=== PATIENT | female | born 1970 ===

== ENCOUNTER 2020-09-02 17:42 | Emergency (ER) | payer SELFPAY ==
[2020-09-02 17:56] VITALS: BP 153/95
[2020-09-02] MEDS ORDERED: ONDANSETRON 4 MG/2 ML INJ IV ONE (19:40)
[2020-09-02] MEDS ORDERED: MORPHINE 4 MG/1 ML INJ IV ONE (19:40)
[2020-09-02] MEDS ORDERED: FAMOTIDINE 20 MG/2 ML INJ IV ONE (19:40)
[2020-09-02] MEDS ORDERED: LIDOCAINE VISCOUS 2% 15 ML ORAL LIQD PO ONE (19:42)
[2020-09-02] MEDS ORDERED: ALUM-MAG HYDROXIDE-SIMETHICONE 200-200-20MG/5ML ORAL LIQD 30 ML PO ONE (19:42)
[2020-09-02 20:08] LABS: Basophils % (Auto) 0.3 % (0.0-1.8); Eosinophils % (Auto) 0.2 % (0.0-4.3); Hematocrit 37.8 % (30.3-42.9); Hemoglobin 12.6 gm/dl (10.1-14.3); Lymphocytes # (Auto) 1.3 K/mm3 (1.2-5.4); Lymphocytes % (Auto) 13.2 % (13.4-35.0); Mean Corpuscular HGB Conc 33 % (30-34); Mean Corpuscular Volume 92 fl (79-97); Monocytes # (Auto) 0.5 K/mm3 (0.0-0.8); Platelet Count 306 K/mm3 (140-440); Red Blood Count 4.12 M/mm3 (3.65-5.03); Red Cell Distribution Width 13.3 % (13.2-15.2)
[2020-09-02] MEDS ORDERED: SODIUM CHLORIDE 0.9% 1000 ML 1,000 ML IV ONE (20:10)
--- NOTE | 2020-09-02 20:14 | Emergency Department Report ---
ED General Adult HPI - General Chief complaint: Arrhythmia/Palpitations Stated complaint: VOMITING PUI?: No Source: patient Mode of arrival: Ambulatory Limitations: Language Barrier - History of Present Illness Initial comments: Patient is a 49-year-old female with a history of hypertension, GERD and hyperlipidemia presents to the ED with complaint of acute onset persistent epigastric pain, nausea and elevated heart rate for the last 2 hours after having an extensive argument with her prior to arrival in the ED. Patient states that her heart rate felt like palpitations and that the pain in the epigastric area got worse. Patient states that she currently takes hydrochlorothiazide 12.5 mg daily for hypertension and just recently got diagnosed with hyperlipidemia but unable to remember the name of the medication she takes for hyperlipidemia. Patient also states that she occasionally takes Pepcid for GERD. Patient states that epigastric pain and nausea have been persistent since the onset of the symptoms. Patient denies dizziness, syncope, shortness of breath, chest pain, headache, vomiting, fever, chills, cough, neck pain, hematemesis, diarrhea, numbness and tingling or weakness of upper extremities bilaterally, back pain or diaphoresis. MD Complaint: Epigastric pain; nausea; palpitations; elevated blood pressure -: Sudden, hour(s) (2) Location: chest, abdomen Radiation: non-radiation Severity scale (0 -10): 6 Quality: aching, constant Consistency: constant Improves with: none Associated Symptoms: denies other symptoms, loss of appetite, nausea/vomiting. denies: confusion, chest pain, cough, diaphoresis, fever/chills, headaches, malaise, rash, seizure, shortness of breath, syncope, weakness Treatments Prior to Arrival: none - Related Data Previous Rx's Medication Instructions Recorded Last Taken Type Dicyclomine [Bentyl] 20 mg PO Q6H PRN #30 tablet 09/03/20 Unknown Rx Esomeprazole Magnesium [NexIUM] 40 mg PO QDAY #30 capsule. 09/03/20 Unknown Rx Ondansetron [Zofran Odt] 4 mg PO Q6HR PRN #120 tab.manuel 09/03/20 Unknown Rx hydrOXYzine PAMOATE [Vistaril] 25 mg PO Q6HR PRN #30 capsule 09/03/20 Unknown Rx Allergies Allergy/AdvReac Type Severity Reaction Status Date / Time No Known Allergies Allergy Unverified 09/02/20 17:53 ED Review of Systems ROS: Stated complaint: VOMITING Other details as noted in HPI Constitutional: malaise, other (elevated blood pressure). denies: chills, fever Eyes: denies: eye pain, eye discharge, vision change ENT: denies: ear pain, throat pain Respiratory: denies: cough, shortness of breath, wheezing Cardiovascular: palpitations. denies: chest pain Endocrine: no symptoms reported Gastrointestinal: abdominal pain (epigastric pain), nausea. denies: vomiting, diarrhea Genitourinary: denies: urgency, dysuria, frequency, hematuria, discharge, abnormal menses Musculoskeletal: denies: back pain, joint swelling, arthralgia Skin: denies: rash, lesions Neurological: denies: headache, weakness, paresthesias Psychiatric: anxiety. denies: depression Hematological/Lymphatic: denies: easy bleeding, easy bruising ED Past Medical Hx - Past Medical History Hx Hypertension: Yes Hx GERD: Yes Additional medical history: Hyperlipidemia - Surgical History Past Surgical History?: No - Social History Smoking Status: Unknown if ever smoked - Medications Home Medications: Home Medications Medication Instructions Recorded Confirmed Last Taken Type Dicyclomine [Bentyl] 20 mg PO Q6H PRN #30 tablet 09/03/20 Unknown Rx Esomeprazole Magnesium [NexIUM] 40 mg PO QDAY #30 capsule. 09/03/20 Unknown Rx Ondansetron [Zofran Odt] 4 mg PO Q6HR PRN #120 tab.rapdis 09/03/20 Unknown Rx hydrOXYzine PAMOATE [Vistaril] 25 mg PO Q6HR PRN #30 capsule 09/03/20 Unknown Rx ED Physical Exam - General Limitations: Language Barrier General appearance: alert, in no apparent distress - Head Head exam: Present: atraumatic, normocephalic, normal inspection - Eye Eye exam: Present: normal appearance, PERRL, EOMI Pupils: Present: normal accommodation - ENT ENT exam: Present: normal exam, normal orophraynx, mucous membranes moist, TM's normal bilaterally, normal external ear exam - Neck Neck exam: Present: normal inspection, full ROM - Respiratory Respiratory exam: Present: normal lung sounds bilaterally. Absent: respiratory distress, wheezes, rales, rhonchi, stridor, chest wall tenderness, accessory muscle use, decreased breath sounds, prolonged expiratory - Cardiovascular Cardiovascular Exam: Present: normal rhythm, tachycardia, normal heart sounds. Absent: systolic murmur, diastolic murmur, rubs, gallop - GI/Abdominal GI/Abdominal exam: Present: soft, tenderness (palpable epigastric tenderness), normal bowel sounds. Absent: distended, guarding, rebound, hyperactive bowel sounds, hypoactive bowel sounds, organomegaly - Extremities Exam Extremities exam: Present: normal inspection, full ROM, normal capillary refill - Back Exam Back exam: Present: normal inspection, full ROM. Absent: tenderness, CVA tenderness (R), CVA tenderness (L), muscle spasm, paraspinal tenderness, vertebral tenderness - Neurological Exam Neurological exam: Present: alert, oriented X3, CN II-XII intact, normal gait, reflexes normal - Psychiatric Psychiatric exam: Present: normal affect, normal mood, anxious - Skin Skin exam: Present: warm, dry, intact, normal color. Absent: rash ED Course Vital Signs 09/02/20 09/03/20 17:46 04:51 Temperature 97.6 F Pulse Rate 109 H 86 Respiratory 18 16 Rate Blood Pressure 153/95 O2 Sat by Pulse 99 98 Oximetry ED Medical Decision Making - Lab Data Result diagrams: 09/02/20 19:46 09/02/20 19:46 - EKG Data EKG shows normal: sinus rhythm Rate: normal - EKG Data Interpretation: normal EKG 09/03/20 01:00 The repeat 3-hour EKG shows normal sinus rhythm with a ventricular rate of [address] or T wave abnormalities. - Radiology Data Radiology results: report reviewed, image reviewed [address] [address] XRay Report Signed Patient: LAWRENCE MADISON MR#: [id number] : 1970 Acct:[id number] Age/Sex: 49 / F ADM Date: 09/02/20 Loc: ED Attending Dr: Ordering Physician: LOBO ALVARENGA Date of Service: 09/02/20 Procedure(s): XR chest routine 2V Accession Number(s): [id number] cc: LOBO ALVARENGA Fluoro Time In Minutes: CHEST 2 VIEWS INDICATION: chest pain. COMPARISON: None FINDINGS: SUPPORT DEVICES: None. HEART: Within normal limits. LUNGS/PLEURA: No acute air space or interstitial disease. No pneumothorax. ADDITIONAL FINDINGS: None. IMPRESSION: 1. No acute findings. Signer Name: Yevgeniy Arce MD Signed: 09/02/2020 8:31 PM Workstation Name: [id number] Transcribed By: ERASTO Dictated By: Yevgeniy Arce MD Electronically Authenticated By: Yevgeniy Arce MD Signed Date/Time: 09/02/202030 DD/ 30 TD/TT: - Medical Decision Making This is a 49-year-old female with a history of hypertension, GERD and hyperlipidemia presents to the ED with complaint of acute onset persistent epigastric pain, nausea and elevated heart rate for the last 2 hours after h aving an extensive argument with her prior to arrival in the ED. Patient states that her heart rate felt like palpitations and that the pain in the epigastric area got worse. Patient states that she currently takes hydrochlorothiazide 12.5 mg daily for hypertension and just recently got di agnosed with hyperlipidemia but unable to remember the name of the medication she takes for hyperlipidemia. Patient also states that she occasionally takes Pepcid for GERD. Patient states that epigastric pain and nausea have been persistent since the onset of the symptoms. In the ED, patient is alert and oriented x3 and is not in any distress but anxious, afebrile and tachycardic in triage. Initial EKG shows sinus tachycardia with a ventricular rate of [address] or T wave abnormalities. Chest x-ray shows no acute cardiopulmonary abnormalities or pneumonitis. Lab test results were reviewed and are all nonactionable including initial and 3-hour troponin levels. Repeat 3-hour EKG shows sinus rhythm with a ventricular rate of [address] or T wave abnormalities. On reevaluation, patient felt better, epigastric pain resolved as well as nausea. Patient is hemodynamically stable. Patient was discharged home on medications and advised to follow-up with her primary care physician in 5 to 7 days for reevaluation. Patient advised return to the ED immediately if symptoms get worse. - Differential Diagnosis GERD; Anxiety; Uncontrolled HTN; ACS Critical care attestation.: If time is entered above; I have spent that time in minutes in the direct care of this critically ill patient, excluding procedure time. ED Disposition Clinical Impression: Anxiety as acute reaction to exceptional stress, Uncontrolled hypertension, stage 1, Abdominal pain, acute, epigastric GERD (gastroesophageal reflux disease) Qualifiers: Esophagitis presence: esophagitis presence not specified Qualified Code(s): K21.9 - Gastro-esophageal reflux disease without esophagitis Disposition: TO HOME OR SELFCARE Is pt being admited?: No Does the pt Need Aspirin: No Condition: Stable Instructions: Generalized Anxiety Disorder, Adult, Hypertension, Adult, [id number], Gastroesophageal Reflux Disease, Adult, [id number], Hypertension (ED) Additional Instructions: Todos los resultados de las pruebas de laboratorio fueron revisados ??y no son factibles. La radiografa de trax no muestra ninguna anomala cardiopulmonar aguda krystin neumonitis. Es probable que hay sntomas se deban a complicaciones de la ERGE, complicadas por la ansiedad. Por lo tanto, tome los medicamentos con alimentos, padmaja muchos lquidos y emma un seguimiento con mann mdico de atencin primaria en 5 a 7 chen para paula reevaluacin. Regrese al servicio de urgencias de inmediato si los sntomas empeoran. Prescriptions: Dicyclomine [Bentyl] 20 mg PO Q6H PRN #30 tablet PRN Reason: Abdominal pain Esomeprazole Magnesium [NexIUM] 40 mg PO QDAY #30 capsule. hydrOXYzine PAMOATE [Vistaril] 25 mg PO Q6HR PRN #30 capsule PRN Reason: Anxiety Ondansetron [Zofran Odt] 4 mg PO Q6HR PRN #120 tab.rapdis PRN Reason: Nausea Referrals: [facility] [Provider Group] - 3-5 Days Time of Disposition: 00:18 Print Language: BURUNDIAN
[2020-09-02 20:33] LABS: Alanine Aminotransferase 19 units/L (7-56); Albumin 4.5 g/dL (3.9-5); Blood Urea Nitrogen 9 mg/dL (7-17); Calcium 9.9 mg/dL (8.4-10.2); Hemolysis Index 8
--- NOTE | 2020-09-02 20:36 | XRay Report ---
CHEST 2 VIEWS INDICATION: chest pain. COMPARISON: None FINDINGS: SUPPORT DEVICES: None. HEART: Within normal limits. LUNGS/PLEURA: No acute air space or interstitial disease. No pneumothorax. ADDITIONAL FINDINGS: None. IMPRESSION: 1. No acute findings. Signer Name: Yevgeniy Arce MD Signed: 09/02/2020 8:31 PM Workstation Name: [id number]
[2020-09-02 20:46] LABS: BUN/Creatinine Ratio 18
--- NOTE | 2020-09-03 09:15 | Electrocardiograph Report ---
[facility] Test Date: 2020-09-02 Test Time: 17:57:38 Pat Name: LAWRENCE MADISON Department: Room: Gender: F Sponsorship Coordinator: KATE : 1970 Requested By: KAMERON WHITT III Order Number: [id number] Reading MD: Ulises Marie Measurements Intervals [place] Rate: 108 P: 45 CT: 163 QRS: 18 QRSD: 74 T: 12 QT: 350 QTc: 469 Interpretive Statements Sinus tachycardia Probable left atrial enlargement nonspecific st-t No previous ECG available for comparison Electronically Signed On 09-03-2020 9:15:17 EDT by Ulises Marie
--- NOTE | 2020-09-03 09:20 | Electrocardiograph Report ---
[facility] Test Date: 2020-09-03 Test Time: 00:52:29 Pat Name: LAWRENCE MADISON Department: Room: Gender: F [employer] Cashier: BENJAMIN : 1970 Requested By: JOHN CARRINGTON Order Number: [id number] Reading MD: Uilses Marie Measurements Intervals [place] Rate: 97 P: 55 TX: 161 QRS: 15 QRSD: 85 T: 23 QT: 367 QTc: 466 Interpretive Statements Sinus rhythm Compared to ECG 09/02/2020 17:57:38 Sinus tachycardia no longer present Electronically Signed On 09-03-2020 9:19:48 EDT by Ulises Marie
== END 2020-09-03 01:05 | disposition home or self-care (01) ==
LOC: ED 17:42
DX: F41.8 Other specified anxiety disorders (principal); F43.0 Acute stress reaction; I10 Essential (primary) hypertension; R10.9 Unspecified abdominal pain; R52 Pain, unspecified; R10.13 Epigastric pain; K21.9 Gastro-esophageal reflux disease without esophagitis
CPT/HCPCS: 36415; 71046; 80053; 84484; 85025; 93005; 96360; 99284; J2270; J2405; J7030; 96361; 96365; 96375